=== PATIENT | male | born 1985 | race Caucasian/White ===

== ENCOUNTER 2016-11-20 12:31 | Emergency (ER) | payer SELFPAY ==
[2016-11-20] MEDS ORDERED: Ketorolac 60 MG/2 ML SDV IM ONE (13:23)
[2016-11-20 13:25] VITALS: BP 139/77
--- NOTE | 2016-11-20 13:28 | EDM.PDOC ---
ED HPI GENERAL MEDICAL PROBLEM - General Chief Complaint: Lower Extremity Injury/Pain Stated Complaint: RT ANKLE PAIN/POSSIBLY BROKEN Time Seen by Provider: 11/20/16 13:21 Source of Information: Reports: Patient, Family, RN Notes Reviewed History Limitations: Reports: No Limitations - History of Present Illness INITIAL COMMENTS - FREE TEXT/NARRATIVE: 31-year-old gentleman presents emergency department day complaint of right ankle pain, he injured himself yesterday while playing basketball with an ankle inversion he has not been able to bear weight he has had limited swelling no bruising is present but he is experiencing significant pain Right Ankle Pain Score (Numeric/FACES): 4 - Related Data Allergies Allergy/AdvReac Type Severity Reaction Status Date / Time No Known Allergies Allergy Verified 11/20/16 13:13 Home Meds: Home Meds NK [No Known Home Meds] 11/20/16 [History] Past Medical History Cardiovascular History: Reports: [place] Musculoskeletal History: Reports: Fracture - Past Surgical History Neurological Surgical History: Reports: Other (See Below) Other Neurological Surgeries/Procedures: spine surgery with screws and pins Social & Family History - Tobacco Use Smoking Status *Q: Light Tobacco Smoker Years of Tobacco use: 12 Packs/Tins Daily: 0.5 Used Tobacco, but Quit: No - Alcohol Use Days Per Week of Alcohol Use: 0 - Recreational Drug Use Recreational Drug Use: No Review of Systems - Review of Systems Review Of Systems: See Below GI/Abdominal: Reports: No Symptoms Musculoskeletal: Reports: Back Pain ED EXAM, GENERAL - Physical Exam Exam: See Below Exam Limited By: No Limitations General Appearance: Alert, WD/WN, No Apparent Distress Extremities: Normal Inspection, Normal Capillary Refill, Other (Examination of the right ankle he will not tolerate any anterior drawer test or tilt test cannot bear weight, pedal pulse is +2) Course - Vital Signs Last Recorded V/S: Last Vital Signs Temp 97.5 F 11/20/16 13:13 Pulse 81 11/20/16 13:13 Resp 16 11/20/16 13:13 BP 139/77 11/20/16 13:13 Pulse Ox 98 11/20/16 13:13 - Orders/Labs/Meds Meds: Medications Discontinued Medications Generic Name Dose Route Start Last Admin Trade Name Freq PRN Reason Stop Dose Admin Hydromorphone HCl 1 mg 11/20/16 14:11 Dilaudid IM 08/02/17 14:12 ONETIME ONE Ketorolac Tromethamine 60 mg 11/20/16 13:23 11/20/16 13:33 Toradol IM 11/20/16 13:24 60 mg ONETIME ONE Administration Departure - Departure Time of Disposition: 14:24 Disposition: Home, Self-Care 01 Condition: Good Clinical Impression: Right foot sprain Qualifiers: Encounter type: initial encounter Qualified Code(s): S93.601A - Unspecified sprain of right foot, initial encounter - Discharge Information Forms: ED Department Discharge Additional Instructions: Use ibuprofen for baseline pain control, use Percocet as needed for breakthrough pain Please followup with your primary care provider in 3-5 days if not better, please call return to the emergency department with worsening of symptoms. - Assessment/Plan Plan: Assessment Acuity = acute Site and laterality = right foot sprain Etiology = secondary to twisting injury basketball Manifestations = pain Location of injury = Home Lab values = x-rays of the ankle and foot showed no dislocation or fracture Plan He received some pain relief from the Dilaudid in the ED he was given a cam walker boot and crutches and instructed to follow-up with primary care in 3-5 days if no improvement total #6 oxycodone provided Patient was in agreement with the plan all questions were answered, they were instructed to return to the emergency department or call for worsening symptoms. This note was dictated using [employer] voice recognition software please call with any questions.
--- NOTE | 2016-11-20 14:07 | CR ---
Mild hypertrophic change at the ankle joint. No fracture.
[2016-11-20] MEDS ORDERED: HYDROmorphone 1 MG/ML Syringe IM ONE (14:11)
--- NOTE | 2016-11-20 14:17 | CR ---
No fracture or dislocation.
== END 2016-11-20 14:56 | disposition home or self-care (01) ==
LOC: JP.ED 12:31
DX: S93.401A Sprain of unspecified ligament of right ankle, initial encounter (principal); I25.2 Old myocardial infarction; F17.210 Nicotine dependence, cigarettes, uncomplicated; Z98.890 Other specified postprocedural states; X50.1XXA Overexertion from prolonged static or awkward postures, initial encounter; Y93.67 Activity, basketball
CPT/HCPCS: 73610; 73630; 96372; 99284; J1170; J1885; 99283